=== PATIENT | female | born 1970 | race Caucasian/White ===

== ENCOUNTER 2018-08-21 03:28 | Emergency (ER) | payer MEDICAID ==
[~2018-08-21] VITALS: Ht 152.4 cm; Wt 72.6 kg
[2018-08-21 03:30] VITALS: BP_SYST 120
[2018-08-21] MEDS ORDERED: HYDROcodone/ACETAMIN 5-325 MG TAB (NORCO/ VICODIN) PO ONE (03:45)
[2018-08-21] MEDS ORDERED: CYCLOBENZAPRINE HCL 10 MG TABLET (FLEXERIL) PO ONE (04:30)
[2018-08-21 04:55] VITALS: BP_SYST 120
== END 2018-08-21 04:55 | disposition home or self-care (01) ==
LOC: SED 03:28
DX: S16.1XXA Strain of muscle, fascia and tendon at neck level, initial encounter (principal); S00.03XA Contusion of scalp, initial encounter; V43.52XA Car driver injured in collision with other type car in traffic accident, initial encounter; Y93.89 Activity, other specified; Y92.410 Unspecified street and highway as the place of occurrence of the external cause; Y99.8 Other external cause status
CPT/HCPCS: 70450-TC; 72125-TC; 99284